=== PATIENT | male | born 1980 | race Caucasian/White ===

== ENCOUNTER 2018-07-27 18:42 | Inpatient (IN) | payer OTHER ==
[~2018-07-27] VITALS: Ht 182.9 cm; Wt 158.8 kg
[2018-07-27 18:42] VITALS: BP_SYST 185
[2018-07-27] MEDS ORDERED: IPRATROPIUM BROM 0.5 MG/2.5 ML VIAL.NEB (ATROVENT) INH ONE (19:00)
[2018-07-27] MEDS ORDERED: ALBUTEROL SULFATE 0.083% 2.5 MG/3 ML VIAL.NEB INH ONE (19:00)
[2018-07-27 19:23] LABS: BASOPHILS # (AUTO) 0.1 K/uL (0.0-0.2); BASOPHILS % (AUTO) 1.1 % (0.0-2.0); EOSINOPHILS # (AUTO) 0.1 K/uL (0.0-0.4); EOSINOPHILS % (AUTO) 0.9 % (0.0-4.0); HEMATOCRIT 44.6 % (36-54); HEMOGLOBIN 15.3 g/dL (14.0-18.0); MEAN CORPUSCULAR HEMOGLOBIN 32 pg (27-31); MEAN CORPUSCULAR HGB CONC 34 % (32-36); MEAN CORPUSCULAR VOLUME 92 fL (79.0-98.0); MONOCYTES # (AUTO) 0.7 K/uL (0.0-1.0); MONOCYTES % (AUTO) 9.3 % (1.7-9.3); NEUTROPHILS # (AUTO) 4.2 K/uL (1.8-7.7); NEUTROPHILS % (AUTO) 59.7 % (40.0-70.0); PLATELET COUNT (AUTO) 194 K/uL (130-430); RED BLOOD CELL COUNT(AUTO) 4.85 MIL/uL (4.2-6.2); RED CELL DISTRIBUTION WIDTH 12.6 % (9.0-15.0); WHITE BLOOD COUNT (AUTO) 7.1 K/uL (4.8-10.8)
[2018-07-27 19:36] LABS: ANION GAP 11 (5-15); CALCIUM 9.3 mg/dL (8.4-11.0); CHLORIDE 104 mmol/L (98-107); CREATININE 1.12 mg/dL (0.55-1.30); GLUCOSE 106 mg/dL (70-99); POTASSIUM 3.7 mmol/L (3.5-5.1); SODIUM SERUM 141 mmol/L (136-145); UREA NITROGEN, BLOOD 15 mg/dL (8-21)
[2018-07-27 19:37] LABS: GFR AFRICAN AMERICAN 94 mL/min (>90)
[2018-07-27 19:45] LABS: ALANINE AMINOTRANSFERASE 92 U/L (12-78); ALBUMIN 3.2 g/dL (3.4-4.8); ASPARTATE AMINOTRANSFERASE 76 U/L (10-37); TOTAL BILIRUBIN 0.4 mg/dL (0.0-1.0)
[2018-07-27] MEDS ORDERED: AZIT250T PO (20:39)
[2018-07-27] MEDS ORDERED: IBUP-1969 PO (20:39)
[2018-07-27] MEDS ORDERED: LEVOFLOXACIN 500 MG/D5W 100 ML IV SCH (23:45)
[2018-07-28 00:12] VITALS: BP_SYST 134
[2018-07-28] MEDS: IPRATROPIUM/ALBUTEROL SULFATE 3 ML AMPUL.NEB (DUONEB) INH PRN ×3 (01:40→20:37)
[2018-07-28] MEDS ORDERED: LEVOFLOXACIN 500 MG/D5W 100 ML IV ONE (02:09)
[2018-07-28 07:30] VITALS: BP_SYST 130
[2018-07-28 12:00] VITALS: BP_SYST 126
[2018-07-28] MEDS ORDERED: IOHEXOL 350 mgI/mL, 150 ML INFUS..BTL IV ONE (12:27)
[2018-07-28 16:00] VITALS: BP_SYST 130
[2018-07-28 19:00] VITALS: BP_SYST 129
[2018-07-28 20:00] VITALS: BP_SYST 129
[2018-07-28] MEDS: LEVOFLOXACIN 500 MG/D5W 100 ML IV SCH (21:03)
[2018-07-29] VITALS: BP_SYST 123
[2018-07-29 07:45] VITALS: BP_SYST 101
[2018-07-29] MEDS: IPRATROPIUM/ALBUTEROL SULFATE 3 ML AMPUL.NEB (DUONEB) INH PRN (11:01)
[2018-07-29 11:59] VITALS: BP_SYST 132
[2018-07-29] MEDS: IPRATROPIUM/ALBUTEROL SULFATE 3 ML AMPUL.NEB (DUONEB) INH SCH ×2 (15:20→19:59)
[2018-07-29 16:41] VITALS: BP_SYST 115
[2018-07-29 20:00] VITALS: BP_SYST 134
[2018-07-29] MEDS: LEVOFLOXACIN 500 MG/D5W 100 ML IV SCH (20:49)
[2018-07-30 00:33] VITALS: BP_SYST 114
[2018-07-30] MEDS: IPRATROPIUM/ALBUTEROL SULFATE 3 ML AMPUL.NEB (DUONEB) INH SCH (07:28)
[2018-07-30 08:02] VITALS: BP_SYST 117
[2018-07-30 10:04] VITALS: BP_SYST 116
[2018-07-30 10:14] VITALS: BP_SYST 116
[2018-07-30 11:04] VITALS: BP_SYST 122
[2018-08-04 00:14] LABS: MYCOPLASMA PNEUMONIAE IgM <770 U/mL (0-769)
[2018-08-06 15:23] LABS: MYCOPLASMA PNEUMONIAE IgG 147 U/mL (0-99)
== END 2018-07-30 11:20 | disposition home or self-care (01) | DRG 193 ==
LOC: SED 18:42 → SMU 23:00
PROVIDERS: ADMIT Internal Medicine Hospice and Palliative Medicine; ATTEND Internal Medicine Hospice and Palliative Medicine
DX: J18.9 Pneumonia, unspecified organism (principal); J96.00 Acute respiratory failure, unspecified whether with hypoxia or hypercapnia; Z68.42 Body mass index [BMI] 45.0-49.9, adult; E66.01 Morbid (severe) obesity due to excess calories; R09.02 Hypoxemia; I50.9 Heart failure, unspecified; G47.33 Obstructive sleep apnea (adult) (pediatric)
CPT/HCPCS: 36415; 36600; 71045; 71275; 80053; 82803-TC; 83880; 84443-TC; 84484; 85025; 85379; 86710; 86738; 93005; 93306; 93970; 94640; 94760; 99285; J1956; J7613; J7620; Q9967